=== PATIENT | male | born 1955 | race Caucasian/White ===

== ENCOUNTER 2016-09-01 11:33 | Emergency (ER) | payer OTHER ==
[2016-09-01 12:07] LABS: BASOPHIL 0.7 % (0-2); EOSINOPHIL 2.2 % (0-5); HCT 49.2 % (42.0-52.0); HGB 17.9 g/dl (13.2-18.0); LYMPHOCYTE 42.6 % (15-48); MCH 30.1 pg (25.0-31.0); MCHC 36.4 g/dL (32.0-36.0); MCV 82.7 fL (78.0-100.0); MONOCYTE 10.3 % (0-12); MPV 10.8 fL (6.0-9.5); NEUTROPHIL 44.2 % (41-80); PLT 271 K/uL (150-400); RBC 5.95 M/uL (4.70-6.00); RDW 13.9 % (11.5-14.0); WBC 6.7 K/uL (4.0-10.5)
[2016-09-01 12:28] LABS: INR 1.08 (0.9-1.2); PROTHROMBIN TIME 13.6 SECONDS (11.7-14.0); PTT 28.6 SECONDS (23.2-31.4)
[2016-09-01 12:35] LABS: ALBUMIN 4.3 g/dL (3.4-4.8); BILIRUBIN - TOTAL 0.5 mg/dL (0.1-1.0); GLOBULIN (CALCULATION) 3.6 g/dL (2.2-4.2); MAGNESIUM 2.11 mg/dL (1.40-2.10); POTASSIUM 3.7 mmol/L (3.5-5.1); TOTAL PROTEIN 7.9 g/dL (6.4-8.3)
[2016-09-01 12:36] LABS: CKMB 4.22 ng/mL (0.97-4.94); TROPONIN T 0.016 ng/mL
== END 2016-09-01 16:00 | disposition other institution (70) ==
LOC: FER 11:33
PROVIDERS: Emergency Medicine
DX: I20.0 Unstable angina (principal); I10 Essential (primary) hypertension; Z79.899 Other long term (current) drug therapy
CPT/HCPCS: 36415; 71010; 80053; 82550; 82553; 83735; 83874; 83880; 84484; 85025; 85610; 85730; 93005; J1644; J2270; J2405

== ENCOUNTER → 2021-09-10 | Day surgery (SDC) | payer MEDICARE, OTHER ==
[~2021-09-10] VITALS: Ht 182.9 cm; Wt 93.0 kg
[~2021-09-10] MED LIST: ASPIRIN EC81 MG PO; LIPITOR80 MG PO; LOSARTAN-HCTZ1 EAC1 PO; NORVASC5 MG PO; PROTONIX 40MG T40 MG PO
== END | disposition home or self-care (01) ==
LOC: FAS 07:52
DX: R19.7 Diarrhea, unspecified (principal); K31.9 Disease of stomach and duodenum, unspecified; K63.3 Ulcer of intestine; D12.3 Benign neoplasm of transverse colon; K44.9 Diaphragmatic hernia without obstruction or gangrene; K29.60 Other gastritis without bleeding; I10 Essential (primary) hypertension; I25.10 Atherosclerotic heart disease of native coronary artery without angina pectoris; K21.9 Gastro-esophageal reflux disease without esophagitis; E78.00 Pure hypercholesterolemia, unspecified; Z87.891 Personal history of nicotine dependence; Z80.0 Family history of malignant neoplasm of digestive organs; Z95.0 Presence of cardiac pacemaker; Z95.5 Presence of coronary angioplasty implant and graft; Z79.82 Long term (current) use of aspirin
CPT/HCPCS: J2250; J2704; J7120